=== PATIENT | female | born 1990 | race Caucasian/White ===

== ENCOUNTER 2018-05-30 14:55 | Outpatient (CLI) | payer BC ==
--- NOTE | 2018-05-30 17:06 | RAD ---
THREE VIEWS LUMBAR SPINE: HISTORY: Back pain for 8 days. Injury. FINDINGS: AP, lateral, and coned-down views of the lumbar spine obtained. Three views lumbar spine demonstrate 5 [id number] lumbar vertebrae. No evidence of lumbar spine fractures, subluxations, or bony lesions seen. IMPRESSION: Normal 3 views lumbar spine. POS: [facility]
== END 2018-05-30 14:56 | disposition home or self-care (01) ==
LOC: MADRAD 14:55
PROVIDERS: ATTEND Family Medicine
DX: M54.41 Lumbago with sciatica, right side (principal)
CPT/HCPCS: 72100

== ENCOUNTER 2018-06-11 03:14 | Emergency (ER) | payer BC ==
[2018-06-11] MEDS ORDERED: Morphine 4 MG/ML VIAL ONE (03:47)
[2018-06-11] MEDS ORDERED: Ketorolac Tromethamine 30 MG/ML VIAL ONE (03:47)
[2018-06-11] MEDS ORDERED: Dexamethasone 10 MG/ML VIAL ONE (03:47)
[2018-06-11] MEDS ORDERED: Ondansetron PF 4 MG/2 ML Vial ONE (03:48)
== END 2018-06-11 04:49 | disposition home or self-care (01) ==
LOC: MADERS 03:14
DX: M54.10 Radiculopathy, site unspecified (principal); F17.210 Nicotine dependence, cigarettes, uncomplicated; F98.8 Other specified behavioral and emotional disorders with onset usually occurring in childhood and adolescence; F31.9 Bipolar disorder, unspecified; Z79.899 Other long term (current) drug therapy
CPT/HCPCS: 96374; 96375; J1100; J1885; J2270; J2405

== ENCOUNTER 2018-07-08 07:04 | Outpatient (CLI) | payer BC ==
--- NOTE | 2018-07-08 09:03 | RAD ---
LUMBAR SPINE FIVE VIEWS: INDICATIONS: Herniated disk. FINDINGS: There are five lumbar type vertebrae. Vertebral body heights and disk spaces are relatively well pre served. No abnormal translational motion is evident. There is a 3 mm calculus overlying the inferio r pole of the left kidney. The lung bases are clear. The bowel gas pattern is unobstructed. IMPRESSION: 1. Lumbar spine appears radiographically normal. 2. Left nephrolithiasis. 3. No abnormal translational motion. POS: [facility]
== END 2018-07-08 07:05 | disposition home or self-care (01) ==
LOC: MADRAD 07:04
PROVIDERS: ATTEND Neurological Surgery
DX: M54.16 Radiculopathy, lumbar region (principal); N20.0 Calculus of kidney
CPT/HCPCS: 72120